=== PATIENT | female | born 1955 | race Caucasian/White ===

== ENCOUNTER → 2020-10-11 | Outpatient (CLI) | payer SELFPAY ==
[~2020-10-11] MED LIST: CATHETER FLUSH 10 ML SYR IV PRN; HOLD METFORMIN - RECEIVED CONTRAST 20 ML VIAL IV SCH; IOHEXOL 350 MG/ML 100 ML (OMNIPAQUE 350) VIAL IV ONE; NS 100 ML (IVPB) BAG IV ONE
--- NOTE | 2020-10-11 10:18 | Diagnostic Imaging Report ---
PROCEDURE: CT abdomen and pelvis with contrast. TECHNIQUE: Multiple contiguous axial images were obtained through the abdomen and pelvis after administration of intravenous contrast. Auto Exposure Controls were utilized during the CT exam to meet ALARA standards for radiation dose reduction. All CT scans use one or more of the following dose optimizing techniques: automated exposure control, MA and/or KvP adjustment based on patient size and exam type or iterative reconstruction. INDICATION: Lower abdominal pain. History of diverticulitis. COMPARISON: None FINDINGS: Included portions of the lung bases show benign calcified granuloma of the posterior left lower lobe. CT ABDOMEN: Normal appendix is identified. There are few scattered clonic diverticuli, but no CT evidence of acute diverticulitis. Small bowel loops are nondistended. The kidneys, spleen, pancreas, and liver have an unremarkable CT appearance. There is focal fatty infiltrate of segment IVb adjacent to the falciform ligament. Note is also made of cholelithiasis, but without appreciable gallbladder wall thickening or pericholecystic free fluid. Right adrenal nodular lesion measures 2.6 x 1.8 cm and shows internal enhancement. Despite the enhancement, it remains incompletely characterized on this exam. Left adrenal gland has a normal CT appearance. There is no loculated fluid collection, free fluid, nor free air within the abdomen. No abnormal mesenteric or retroperitoneal adenopathy is seen. There is advanced diffuse calcified aortic and arterial atherosclerosis. Osseous structures show no acute abnormalities. CT PELVIS: Urinary bladder is unopacified. No calculi are seen within the urinary bladder. There is no loculated fluid collection, free fluid, nor free air within the pelvis. No abnormal lymph nodes are identified. Osseous structures show no acute abnormalities. IMPRESSION: 1. No acute abnormalities are seen within the abdomen or pelvis. 2. Incompletely characterized right adrenal lesion. Follow-up with adrenal protocol CT of the abdomen is recommended. 3. Colonic diverticulosis, with no CT evidence of acute diverticulitis. 4. Cholelithiasis, but no CT evidence of acute cholecystitis. 5. Advanced diffuse calcified and noncalcified aortic and arterial atherosclerosis. Correlation with underlying risk factors is recommended. Dictated by: Dictated on workstation # [id number]
== END ==
LOC: RAD FS 09:16
PROVIDERS: ATTEND Clinical Nurse Specialist Emergency
DX: K57.30 Diverticulosis of large intestine without perforation or abscess without bleeding (principal); K80.20 Calculus of gallbladder without cholecystitis without obstruction; I70.0 Atherosclerosis of aorta; I70.8 Atherosclerosis of other arteries
CPT/HCPCS: 74177